=== PATIENT | female | born 1995 | race Caucasian/White ===

== ENCOUNTER 2025-04-15 09:56 | Inpatient (IN) | payer OTHER ==
[~2025-04-15] VITALS: Ht 170.2 cm; Wt 82.0 kg
--- NOTE | 2025-04-15 10:15 | ED.PDOC ---
HPI Comments 29 y/o F, with no prior cardiac medical history, presents to the ED for CC of abdominal pain. Patient states, she has been experiencing epigastric abdominal pain with associated symptoms of N/V/D x1day. Patient relays, pain to be sharp, and constant in nature. Patient reports 10/10 epigastric pain. Patient reports her LMP, to be in late February; patient unable to recall exact date. Patient denies sick contacts, recent travel, melena, hematemesis, fatigue, or weakness. No other symptoms or modifying factors present at this time. Chief Complaint: Chest Pain Time Seen by MD: 10:15 Reviewed Notes: Nurses Notes, Medications, Allergies Allergies: Coded Allergies: Doxycycline (Verified Allergy, Unknown, 04/15/25) FD&C Blue #2 (Indigotine) (Verified Allergy, Unknown, 04/15/25) Metronidazole (Verified Allergy, Unknown, 04/15/25) Oseltamivir (Verified Allergy, Unknown, 04/15/25) Penicillins (Verified Allergy, Unknown, 04/15/25) Sulfa Antibiotics (Verified Allergy, Unknown, 04/15/25) Information Source: Patient Mode of Arrival: Wheelchair Severity: Moderate Timing: Days Duration: Since onset Prehospital treatment: None Onset: At Rest Cardiac Risk Factors: None PE Risk Factors: None History of: None Modifying Factors: Nothing Associated Signs and Symptoms: Abdominal Pain, N/V Past Medical History PAST MEDICAL HISTORY: Denies Surgical History: Denies all surgeries 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 Family History Family History: Unknown Social History Smoker: Non-Smoker Alcohol: Denies ETOH Use Drugs: Denies Drug Use Lives In: Home Constitutional: denies: chills, diaphoresis, fatigue, fever, malaise, sweats, weakness, others EENTM: denies: blurred vision, double vision, ear bleeding, ear discharge, ear drainage, ear pain, ear ringing, eye pain, eye redness, hearing loss, mouth pain, mouth swelling, nasal discharge, nose bleeding, nose congestion, nose pain, photophobia, tearing, throat pain, throat swelling, voice changes, others Respiratory: denies: cough, hemoptysis, orthopnea, SOB at rest, shortness of breath, SOB with excertion, stridor, wheezing, others Cardiovascular: denies: chest pain, dizzy spells, diaphoresis, Dyspnea on exertion, edema, irregular heart beat, left arm pain, lightheadedness, palpitations, PND, syncope, others Gastrointestinal: reports: abdominal pain, diarrhea, nausea, vomiting; denies: abdomen distended, blood streaked bowels, constipated, dysphagia, difficulty swallowing, hematemesis, melena, poor appetite, poor fluid intake, rectal bleeding, rectal pain, others Genitourinary: denies: abnormal vagina bleeding, burning, dyspareunia, dysuria, flank pain, frequency, hematuria, incontinence, pain, , vagina discharge, urgency, others Neurological: denies: dizziness, fainting, headache, left sided numbness, left sided weakness, numbness, paresthesia, pre-existing deficit, right sided numbness, right sided weakness, seizure, speech problems, tingling, tremors, weakness, others Musculoskeletal: denies: back pain, gout, joint pain, joint swelling, muscle pain, muscle stiffness, neck pain, others Integumetry: denies: bruises, change in color, change in hair/nails, dryness, laceration, lesions, lumps, rash, wounds, others Allergic/Immunocompromised: denies: Difficulty Healing, Frequent Infections, Hives, Itching, others Hematologic/Lymphatic: denies: anemia, blood clots, easy bleeding, easy bruising, swollen glands, others Endocrine: denies: excessive hunger, excessive sweating, excessive thirst, excessive urination, flushing, intolerance to cold, intolerance to heat, unexplained weight gain, unexplained weight loss, others Psychiatric: denies: anxiety, bipolar disorder, depression, hopeless, panic disorder, schizophrenia, sleepless, suicidal, others All Other Systems: Reviewed and Negative Physical Exam General Appearance: No Apparent Distress, Normal HEENT: Normal ENT Inspection, Pharynx Normal, TMs Normal Neck: Full Range of Motion, Non-Tender, Normal, Normal Inspection Respiratory: Chest Non-Tender, Lungs Clear, No Accessory Muscle Use, No Respiratory Distress, Normal Breath Sounds Cardiovascular: No Edema, No JVD, No Murmur, No Gallop, Normal Peripheral Pulses, Regular Rate/Rhythm Breast Exam: Deferred Gastrointestinal: Epigastric (tenderness), No Organomegaly, No Pulsatile Mass, Normal Bowel Sounds Genitalia: Deferred Pelvic: Deferred Rectal: Deferred Extremities: No calf tenderness, Normal capillary refill, Normal inspection, Normal range of motion, Non-tender, No pedal edema Musculoskeletal : Apperance: Normal Neurologic: Alert, cable lacer II-XII nml as Tested, No Motor Deficits, Normal Affect, Normal Mood, No Sensory Deficits Cerebellar Function: Normal Reflexes: Normal Skin: Dry, Normal Color, Warm Lymphatic: No Adenopathy Was a procedure done? Was a procedure done?: No CP Differential Dx Differential Diagnosis: Anxiety / Panic Attack Differential Diagnosis: HTN Essential, HTN Accelerated Differential Diagnosis: Chest Wall Pain, Costochondritis, Esophageal reflux/spasm, Gastritis, Other (kidney stone, pancreatitis, cholelithiasis, related conditions) X-Ray, Labs, Meds, VS Vital Signs Date Time Temp Pulse Resp B/P (MAP) Pulse Ox O2 Delivery O2 Flow Rate FiO2 04/15/25 15:05 97.7 65 16 130/71 (90) 100 97.7 04/15/25 13:40 65 15 118/74 04/15/25 12:56 65 16 122/73 04/15/25 12:56 97.0 65 15 122/73 (89) 100 97.0 04/15/25 10:24 98.1 80 19 125/71 (89) 98 98.1 04/15/25 10:22 Room Air* 0 21 04/15/25 10:00 55 04/15/25 09:56 98.1 94 24 137/68 (91) 99 98.1 Lab Test 04/15/25 10:40 04/15/25 10:04 Range/Units White Blood Count 13.6 H 4.4-10.8 10^3/uL Red Blood Count 4.82 4.0-5.20 10^6/uL Hemoglobin 13.4 12.2-16.2 g/dL Hematocrit 40.4 36.0-46.0 % Mean Corpuscular Volume 83.8 80.0-100.0 fL Mean Corpuscular Hemoglobin 27.8 L 28.0-32.0 pg Mean Corpuscular Hemoglobin Concent 33.1 32.0-36.0 g/dL Red Cell Distribution Width 13.9 11.8-14.3 % Platelet Count 223 140-450 10^3/uL Mean Platelet Volume 9.7 6.9-10.8 fL Neutrophils (%) (Auto) 77.1 37.0-80.0 % Lymphocytes (%) (Auto) 14.4 10.0-50.0 % Monocytes (%) (Auto) 7.1 0.0-12.0 % Eosinophils (%) (Auto) 1.1 0.0-7.0 % Basophils (%) (Auto) 0.3 0.0-2.0 % Neutrophils # (Auto) 10.5 H 1.6-8.6 10 ^3/uL Lymphocytes # (Auto) 2.0 0.4-5.4 10 ^3/uL Monocytes # (Auto) 1.0 0-1.3 10 ^3/uL Eosinophils # (Auto) 0.2 0-0.8 10 ^3/uL Basophils # (Auto) 0 0-0.2 10 ^3/uL Nucleated Red Blood Cells 0.1 % Sodium Level 139 136-145 mmol/L Potassium Level 3.5 3.5-5.1 mmol/L Chloride Level 108 H 98-107 mmol/L Carbon Dioxide Level 20 20-31 mmol/L Anion Gap 11 5-15 Blood Urea Nitrogen 10 9-23 mg/dL Creatinine 0.67 0.550-1.02 mg/dL Glomerular Filtration Rate Calc 120 >90 mL/min BUN/Creatinine Ratio 14.9 10.0-20.0 Serum Glucose 150 H 74-106 mg/dL Calcium Level 9.4 8.7-10.4 mg/dL Total Bilirubin 0.8 0.2-1.0 mg/dL Aspartate Amino Transferase (AST) 37 13-40 U/L Alanine Aminotransferase (ALT) 13 7-40 U/L Alkaline Phosphatase 78 46-116 U/L Total Protein 7.6 5.7-8.2 g/dL Albumin 4.8 3.2-4.8 g/dL Lipase 36 12-53 U/L Urine Color Yellow Yellow Urine Clarity Turbid H Clear Urine pH 6.0 5.0-9.0 Urine Specific [place] 1.035 1.001-1.035 Urine Protein 1+ H Negative Urine Ketones Trace Negative Urine Blood Negative Negative /uL Urine Nitrite Negative Negative Urine Bilirubin Negative Negative Urine Urobilinogen 2 H Negative mg/dL Urine Leukocyte Esterase 1+ Negative /uL Urine RBC 3 0 - 4 /hpf Urine Microscopic WBC 18 H 0-5 /HPF Urine Squamous Epithelial Cells Many <5 /hpf Urine Bacteria Many H None Seen /hpf Urine Mucus Few None Seen Urine Glucose Normal Normal mg/dL Current Medications Medications (Trade) Dose Ordered Sig/Shashi Route Start Time Stop Time Status Last Admin Al Hydrox/Mg Hydrox/Simethicone (Maalox Plus) 15 ml ONCE ONCE PO 04/15/25 10:30 04/15/25 10:31 DC 04/15/25 10:34 Sodium Chloride 1,000 ml @ 1,000 mls/hr Q1H ONCE IV 04/15/25 11:45 04/15/25 12:44 DC 04/15/25 12:51 Ondansetron HCl (Zofran) 4 mg ONCE ONCE IV 04/15/25 11:45 04/15/25 11:46 DC 04/15/25 12:51 Morphine Sulfate 2 mg ONCE ONCE IV 04/15/25 12:45 04/15/25 12:46 DC 04/15/25 12:56 [place] [id number] Ph: [phone] DIAGNOSTIC IMAGING Diagnostic Imaging Report : [id number] Signed PATIENT: VIET FAM ACCT: [id number] UNIT: [id number] : 1995 LOC: ER ROOM / BED: / AGE / SEX: 29 / F ADM STATUS: REG ER SERVICE 1026 ORDERING PHYSICIAN: ELVIN ZABALA MD PROCEDURE(s): GBUS - GALLBLADDER REASON: epigastric pain ORDER NUMBER(s): [id number], ACCESSION NUMBER(s): [id number] EXAM: US GALLBLADDER HISTORY: epigastric pain COMPARISON: None TECHNIQUE: Multiple longitudinal and transverse sonographic images of the abdomen were obtained. Doppler was applied as indicated. FINDINGS: [PANCREAS]: The visualized portions of the pancreas are unremarkable. [AORTA]: Normal [LIVER]: 14.3 cm. normal echogenicity and echotexture. There is no focal hepatic mass lesion detected. [GALLBLADDER]: Gallbladder wall measures 0.1 cm. There is no gallbladder sludge or shadowing gallstone. There is no sonographic Mcallister sign. Gallbladder appears partially contracted. [BILIARY TREE]: Common bile duct measures 0.4 cm in diameter. no intrahepatic biliary ductal dilatation. [ASCITES]: No free fluid is demonstrated. [VESSELS]: The main portal vein is patent on color Doppler evaluation. The inferior vena cava is patent on color Doppler evaluation. [RIGHT KIDNEY]: 10.3 cm. normal cortical echogenicity and normal contour. No hydronephrosis. IMPRESSION: 1. No acute sonographic abnormality of the abdomen. ATED BY: MALINDA FLOOD MD DICTATED DATE/TIME: 04/15/25 141 SIGNED BY: MALINDA FLOOD MD SIGNED DATE/TIME: 04/15/25 1415 CC: Time of 1ST Reevaluation: 10:45 Reevaluation 1ST: Unchanged Time of 2ND Reevaluation: 15:21 Reevaluation 2ND: Improved Patient Education/Counseling: Diagnosis, Treatment, Prognosis, Need For Follow Up Family Education/Counseling: Diagnosis, Treatment, Prognosis, Need For Follow Up, No Family Present Additional Information The following tests were ordered, and results were reviewed by me: LABS, EKG X3, GALLBLADDER US I reviewed and agreed with the following test results read by other providers: GALLBLADDER US I discussed treatment and results with medical personnel and: patient Comprehensive systems review obtained and negative except for what is stated in the HPI. pt is improved, but still has pain. her pain is epigastric, but the US is unremarkable. she is not , does does have an uti. she will be admitted for pain control and further evaluation Departure 1 Departure Time of Disposition: 15:23 Impression: Primary Impression: Intractable epigastric abdominal pain Additional Impression: UTI (urinary tract infection) Disposition: ADMITTED INPATIENT Admit to: Med Surg Condition: Stable Discharged With: Self, Relative (Mother) Critical Care Note Critical Care Time?: Yes (55 min-critical care time only) Critical care comment: due to concerns for patient's condition deteriorating, the care required my highest level of attention and readiness to intervene. i assessed the patient's condition, ordered the proper tests and treatments, reassessed for response and reviewed the results. i communicated with medical personnel and formulated a plan of care. total critical care time does not include any procedures Stability Stability form required: No Heart Score Heart Score: Heart Score Response (Comments) Value History N/A 0 EKG N/A 0 Age N/A 0 Risk Factors N/A 0 Troponin N/A 0 Total 0 I personally scribed for ELVIN ZABALA MD ([email or web address]) on 04/15/25 at 10:15. Electronically submitted by Tracey Blankenship ([email or web address]). I personally scribed for ELVIN ZABALA MD ([email or web address]) on 04/15/25 at 10:18. Electronically submitted by Tracey Blankenship ([email or web address]). I personally scribed for ELVIN ZABALA MD ([facility]) on 04/15/25 at 10:30. Electronically submitted by Tracey Blankenship ([email or web address]). I personally scribed for ELVIN ZABALA MD ([facility]) on 04/15/25 at 11:22. Electronically submitted by Tracey Blankenship ([email or web address]). I personally scribed for ELVIN ZABALA MD ([email or web address]) on 04/15/25 at 14:23. Electronically submitted by Tracey Blankenship ([email or web address]). ELVIN ZABALA MD April 15, 2025 10:15
[2025-04-15] MEDS: MAALOX PLUS or MAALOX 30 ML PO ONE (10:34)
[2025-04-15 10:50] LABS: Basophils # (auto) 0 10 ^3/uL (0-0.2); Basophils % (auto) 0.3 % (0.0-2.0); Eosinophils # (auto) 0.2 10 ^3/uL (0-0.8); Eosinophils % (auto) 1.1 % (0.0-7.0); Hematocrit 40.4 % (36.0-46.0); Hemoglobin 13.4 g/dL (12.2-16.2); Lymphocytes % (auto) 14.4 % (10.0-50.0); Mean Corpuscular Hemoglobin 27.8 pg (28.0-32.0); Mean Corpuscular Hgb Conc. 33.1 g/dL (32.0-36.0); Mean Corpuscular Volume 83.8 fL (80.0-100.0); Monocytes % (auto) 7.1 % (0.0-12.0); Neutrophils # (auto) 10.5 10 ^3/uL (1.6-8.6); Neutrophils % (auto) 77.1 % (37.0-80.0); Nucleated Red Blood Cells % 0.1 %; Platelet Count (auto) 223 10^3/uL (140-450); Red Blood Cells 4.82 10^6/uL (4.0-5.20); Red Cell Distribution Width 13.9 % (11.8-14.3); White Blood Cell 13.6 10^3/uL (4.4-10.8)
[2025-04-15 11:11] LABS: Alanine Aminotransferase 13 U/L (7-40); Albumin 4.8 g/dL (3.2-4.8); Alkaline Phosphatase 78 U/L (46-116); Anion Gap 11 (5-15); Aspartate Aminotransferase 37 U/L (13-40); BUN/Creatinine Ratio 14.9 (10.0-20.0); Bilirubin, Total 0.8 mg/dL (0.2-1.0); Blood Urea Nitrogen 10 mg/dL (9-23); Calcium 9.4 mg/dL (8.7-10.4); Carbon Dioxide 20 mmol/L (20-31); Lipase 36 U/L (12-53); Potassium 3.5 mmol/L (3.5-5.1); Sodium 139 mmol/L (136-145); Total Protein 7.6 g/dL (5.7-8.2)
[2025-04-15 11:20] LABS: Chloride 108 mmol/L (98-107); Glucose 150 mg/dL (74-106)
[2025-04-15] MEDS: SODIUM CHLORIDE 0.9% 1,000 ML IV ONE (12:51)
[2025-04-15] MEDS: ONDANSETRON HCL 4 MG/2 ML VIAL IV ONE (12:51)
[2025-04-15] MEDS: MORPHINE SULFATE INJ 2 MG/ml SYRG IV ONE (12:56)
[2025-04-15] MEDS: fentaNYL CITRATE 100 MCG/2 ML VL IV ONE (13:00)
[2025-04-15 13:58] LABS: Urine Bacteria MANY /hpf (None Seen); Urine Blood Negative /uL (Negative); Urine Clarity Turbid (Clear); Urine Color Yellow (Yellow); Urine Mucus FEW (None Seen); Urine Protein, UAD 1+ (Negative); Urine Specific Gravity 1.035 (1.001-1.035); Urine Squamous Epithelial Cell MANY /hpf (<5); Urine Urobilinogen 2 mg/dL (Negative); Urine WBC 18 /HPF (0-5)
--- NOTE | 2025-04-15 14:17 | DVH ---
EXAM: US GALLBLADDER HISTORY: epigastric pain COMPARISON: None TECHNIQUE: Multiple longitudinal and transverse sonographic images of the abdomen were obtained. Dopp ler was applied as indicated. FINDINGS: [PANCREAS]: The visualized portions of the pancreas are unremarkable. [AORTA]: Normal [LIVER]: 14.3 cm. normal echogenicity and echotexture. There is no focal hepatic mass lesion detected . [GALLBLADDER]: Gallbladder wall measures 0.1 cm. There is no gallbladder sludge or shadowing gallston e. There is no sonographic Mcallister sign. Gallbladder appears partially contracted. [BILIARY TREE]: Common bile duct measures 0.4 cm in diameter. no intrahepatic biliary ductal dilatati on. [ASCITES]: No free fluid is demonstrated. [VESSELS]: The main portal vein is patent on color Doppler evaluation. The inferior vena cava is corbett nt on color Doppler evaluation. [RIGHT KIDNEY]: 10.3 cm. normal cortical echogenicity and normal contour. No hydronephrosis. IMPRESSION: 1. No acute sonographic abnormality of the abdomen.
[2025-04-15] MEDS ORDERED: cefTRIAXone 1GM/50ML D5W 50 ML IV ONE (15:30)
[2025-04-15] MEDS ORDERED: DOCUSATE SOD 100 MG CAP PO PRN (15:45)
[2025-04-15] MEDS ORDERED: HYDROcodone-ACET 5/325MG TAB PO PRN (15:45)
[2025-04-15] MEDS ORDERED: ACETAMINOPHEN 325 MG TAB PO PRN (15:45)
--- NOTE | 2025-04-15 16:27 | DVHHP2 ---
History of Present Illness Reason for Visit: Acute abdominal pain History of Present Illness The patient is a 29-year-old female who denies past medical history presented to [facility] ED with complaint of acute epigastric abdominal pain. Patient reports symptoms progressively get worse with diarrhea, nausea, vomi ting, rating pain 10/10 numeric scale, getting worse that prompted this visit. Patient reports LMP to be March 24, 2025, denies . Patient was seen and evaluated in the ED, laboratory data shows WBC 13.6, platelets 223, sodium 139, potassium 3.5, BUN 10, creatinine 0.67, glucose 150, lipase 36, blood pressure 130/71, heart rate 65, temperature 97.7 F, O2 saturation 99% on room air. Urinalysis positive for urinary tract infection. Abdomen/pelvis CT showed no definite acute abdominal or pelvic findings. Patient was started on IV antibiotic regimen levofloxacin, please see medication orders section in the computer. On my assessment, mother at bedside, patient denied chest pain, no headache, no dizziness, no diaphoresis, no shortness of breath, no diarrhea, nausea, or vomiting at this moment, no fever, no chills. Patient was admitted for further evaluation and medical management. Past Medical History Denies past medical history Past Surgical History Denies all surgeries Family History Reviewed, noncontributory to the management of this case. Past Social History The patient lives at home, denies smoking, alcohol or illicit drugs abuse. Review of Systems Constitutional: No: Fever, Chills, Sweats, Weakness, Malaise, Other Eyes: No: Pain, Vision change, Conjunctivae inflammation, Eyelid inflammation, Other, Redness ENT: No: Ear pain, Ear discharge, Nose pain, Nose discharge, Nose congestion, Mouth pain, Mouth swelling, Throat pain, Throat swelling, Other Respiratory: No: Cough, Dry, Shortness of breath, SOB with excertion, Wheezing, Hemoptysis, Pleuritic Pain, Sputum, Wheezing, Other Cardiovascular: No: Chest Pain, Palpitations, Orthopnea, Paroxysmal Noc. Dyspnea, Edema, Lt Headedness, Other Gastrointestinal: Nausea, Vomiting, Abdominal Pain, Diarrhea; No: Constipation, Melena, Hematochezia, Other Genitourinary: No Dysuria, No Frequency, No Incontinence, No Hematuria, No Retention, No Other Musculoskeletal: No: other, neck pain, shoulder pain, arm pain, back pain, hand pain, leg pain, foot pain Skin: No: Rash, Lesions, Jaundice, Bruising, Other Neurological: No: Weakness, Numbness, Incoordination, Change in speech, Confusion, Seizures, Other Allergies: Coded Allergies: COVID-19 (Adenovirus) Vaccine (Verified Allergy, Mild, 04/15/25) Nitrofurantoin (Verified Allergy, Mild, 04/15/25) Doxycycline (Verified Allergy, Unknown, 04/15/25) FD&C Blue #2 (Indigotine) (Verified Allergy, Unknown, 04/15/25) Metronidazole (Verified Allergy, Unknown, 04/15/25) Oseltamivir (Verified Allergy, Unknown, 04/15/25) Penicillins (Verified Allergy, Unknown, 04/15/25) Sulfa Antibiotics (Verified Allergy, Unknown, 04/15/25) Medications Current Medications Medications Dose Ordered Sig/Shashi Route Start Time Stop Time Status Last Admin Dose Admin Levofloxacin/ Dextrose 100 ml @ 100 mls/hr DAILY IV 04/16/25 10:00 Sodium Chloride 1,000 ml @ 60 mls/hr [id number] IV 04/15/25 15:45 Acetaminophen/ Hydrocodone Bitart 1 tab Q4HP PRN PO 04/15/25 15:45 Ondansetron HCl 4 mg Q4HP PRN IV 04/15/25 15:45 Docusate Sodium 100 mg BIDPRN PRN PO 04/15/25 15:45 Acetaminophen 650 mg Q6HP PRN PO 04/15/25 15:45 Exam Vital Signs Vital Signs Date Time Temp Pulse Resp B/P (MAP) Pulse Ox O2 Delivery O2 Flow Rate FiO2 04/15/25 15:05 97.7 65 16 130/71 (90) 100 97.7 04/15/25 10:22 Room Air* 0 21 General Appearance: Alert, Oriented X3, Cooperative, No acute distress HEENT: Atraumatic, PERRLA, EOMI, Mucous membr. moist/pink Respiratory: Clear to auscultation, Normal air movement Cardiovascular: Regular rate, Normal S1, Normal S2, No murmurs Abdominal: Normal bowel sounds, Soft, No hepatospenomegaly, No masses, Other (Reports tenderness) Extremities: No clubbing, No cyanosis, No edema, Normal pulses, No tenderness/swelling Skin: No rashes, No breakdown, No significant lesion Neuro: Normal speech, Normal tone, Sensation intact, Cranial nerves 3-12 NL, Reflexes 2+, Other (Generalized weakness) Psych/Mental Status: Mental status NL, Mood NL Labs/Xrays Labs Test 04/15/25 10:40 04/15/25 10:04 Range/Units White Blood Count 13.6 H 4.4-10.8 10^3/uL Red Blood Count 4.82 4.0-5.20 10^6/uL Hemoglobin 13.4 12.2-16.2 g/dL Hematocrit 40.4 36.0-46.0 % Mean Corpuscular Volume 83.8 80.0-100.0 fL Mean Corpuscular Hemoglobin 27.8 L 28.0-32.0 pg Mean Corpuscular Hemoglobin Concent 33.1 32.0-36.0 g/dL Red Cell Distribution Width 13.9 11.8-14.3 % Platelet Count 223 140-450 10^3/uL Mean Platelet Volume 9.7 6.9-10.8 fL Neutrophils (%) (Auto) 77.1 37.0-80.0 % Lymphocytes (%) (Auto) 14.4 10.0-50.0 % Monocytes (%) (Auto) 7.1 0.0-12.0 % Eosinophils (%) (Auto) 1.1 0.0-7.0 % Basophils (%) (Auto) 0.3 0.0-2.0 % Neutrophils # (Auto) 10.5 H 1.6-8.6 10 ^3/uL Lymphocytes # (Auto) 2.0 0.4-5.4 10 ^3/uL Monocytes # (Auto) 1.0 0-1.3 10 ^3/uL Eosinophils # (Auto) 0.2 0-0.8 10 ^3/uL Basophils # (Auto) 0 0-0.2 10 ^3/uL Nucleated Red Blood Cells 0.1 % Sodium Level 139 136-145 mmol/L Potassium Level 3.5 3.5-5.1 mmol/L Chloride Level 108 H 98-107 mmol/L Carbon Dioxide Level 20 20-31 mmol/L Anion Gap 11 5-15 Blood Urea Nitrogen 10 9-23 mg/dL Creatinine 0.67 0.550-1.02 mg/dL Glomerular Filtration Rate Calc 120 >90 mL/min BUN/Creatinine Ratio 14.9 10.0-20.0 Serum Glucose 150 H 74-106 mg/dL Calcium Level 9.4 8.7-10.4 mg/dL Total Bilirubin 0.8 0.2-1.0 mg/dL Aspartate Amino Transferase (AST) 37 13-40 U/L Alanine Aminotransferase (ALT) 13 7-40 U/L Alkaline Phosphatase 78 46-116 U/L Total Protein 7.6 5.7-8.2 g/dL Albumin 4.8 3.2-4.8 g/dL Lipase 36 12-53 U/L Urine Color Yellow Yellow Urine Clarity Turbid H Clear Urine pH 6.0 5.0-9.0 Urine Specific [place] 1.035 1.001-1.035 Urine Protein 1+ H Negative Urine Ketones Trace Negative Urine Blood Negative Negative /uL Urine Nitrite Negative Negative Urine Bilirubin Negative Negative Urine Urobilinogen 2 H Negative mg/dL Urine Leukocyte Esterase 1+ Negative /uL Urine RBC 3 0 - 4 /hpf Urine Microscopic WBC 18 H 0-5 /HPF Urine Squamous Epithelial Cells Many <5 /hpf Urine Bacteria Many H None Seen /hpf Urine Mucus Few None Seen Urine Glucose Normal Normal mg/dL Urine Test Negative Negative PATIENT: VIET FAM ACCT: [id number] UNIT: [id number] : 1995 LOC: ER ROOM / BED: / AGE / SEX: 29 / F ADM STATUS: REG ER SERVICE 1500 ORDERING PHYSICIAN: ELVIN ZABALA MD PROCEDURE(s): ABPL - CT AB PEL WO CON-NO ORAL OR IV REASON: r/o kidney stones ORDER NUMBER(s): [id number], ACCESSION NUMBER(s): [id number] Exam: CT CT AB PEL WO CON-NO ORAL OR IV History: r/o kidney stones Comparison Study: None Technique: Multidetector spiral CT of the abdomen and pelvis was performed from lung bases to pubic symphysis. Imaging was performed without IV contrast. Axial, coronal and sagittal multiplanar reformats were obtained from the axial data set by the technologist. Radiation dose : Abdomen/Pelvis: CTDIvol 9 mGy, DLP 489 mGy*cm. Findings: Evaluation of solid organs is limited due to lack of intravenous contrast use. Lung Bases: No acute or significant lung base finding. Normal heart size. No pleural or pericardial effusion. Liver: The liver is normal in size. No focal lesions. Gallbladder and biliary Tree: Unremarkable Spleen: Unremarkable Pancreas: The pancreas is grossly normal in appearance. Adrenal Glands: Unremarkable Kidneys: Kidneys are grossly normal without calculi or hydronephrosis. There is a calcification along the course of the distal left ureter measuring up to 4 mm. Bladder: Grossly unremarkable for degree of distention. Bowel: The stomach is grossly normal in appearance. Small bowel and colon are normal in caliber and distribution. Normal appendix is visualized in the right lower quadrant without findings of appendicitis. Ascites: Absent Lymphadenopathy: No mesenteric, retroperitoneal or periportal lymphadenopathy. Abdominal wall and Mesentery: Unremarkable. Vasculature: The visualized abdominal aorta is normal in size and caliber. Evaluation of abdominal and pelvic vessels is limited due to lack of intravenous contrast. Pelvic Organs: Unremarkable Musculoskeletal: No aggressive focal bony lesions, acute fractures or dislocation. IMPRESSION: 1. No definite acute abdominal or pelvic findings. No significant hydronephrosis or nephrolithiasis. Calcification along the course of the distal left ureter is thought to be vascular. If this correlates with symptoms, this can be further evaluated with CT urogram. ORDERING PHYSICIAN: ELVIN ZABALA MD PROCEDURE(s): GBUS - GALLBLADDER REASON: epigastric pain ORDER NUMBER(s): [id number], ACCESSION NUMBER(s): [id number] EXAM: US GALLBLADDER HISTORY: epigastric pain COMPARISON: None TECHNIQUE: Multiple longitudinal and transverse sonographic images of the abdomen were obtained. Doppler was applied as indicated. FINDINGS: [PANCREAS]: The visualized portions of the pancreas are unremarkable. [AORTA]: Normal [LIVER]: 14.3 cm. normal echogenicity and echotexture. There is no focal hepatic mass lesion detected. [GALLBLADDER]: Gallbladder wall measures 0.1 cm. There is no gallbladder sludge or shadowing gallstone. There is no sonographic Mcallister sign. Gallbladder appears partially contracted. [BILIARY TREE]: Common bile duct measures 0.4 cm in diameter. no intrahepatic biliary ductal dilatation. [ASCITES]: No free fluid is demonstrated. [VESSELS]: The main portal vein is patent on color Doppler evaluation. The inferior vena cava is patent on color Doppler evaluation. [RIGHT KIDNEY]: 10.3 cm. normal cortical echogenicity and normal contour. No hydronephrosis. IMPRESSION: 1. No acute sonographic abnormality of the abdomen. Assessment/Plan Assessment/Plan Intractable epigastric abdominal pain Hyperglycemia UTI (urinary tract infection) Generalized weakness Plan 1. Admit to med surge unit 2. Breathing treatment 3. Pain control management 4. IV antibiotic management 5. Management of fluids and electrolytes 6. Consultation for hospitalist 7. Diagnostic test abdomen/pelvis CT 8. DVT prophylaxis on SCDs 9. Repeat labs CBC, CMP in a.m. 10. Home medication reviewed and reconciled 11. Continue with current medical management 12. Treatment plan discussed with patient/mother and RN. Patient/mother verbalized understanding. Plan discussed with: Patient, Other (RN) My Orders Orders - KYLEE FRIAS DNP Procedure Category Date Status Time Levofloxacin 500mg PHA 04/16/25 In Process (Levaquin 500mg/ 100m 10:00 Urine Bacterial MARKUS 04/15/25 In Process Culture 15:42 Hemoglobin A1c LAB 04/15/25 In Process 15:42 Allergies KB 04/15/25 In Process 15:42 Code Status CODE 04/15/25 Transmitted 15:42 2 Gm Sodium Diet DIET 04/15/25 Transmitted Dinner Sodium Chloride 0.9% PHA 04/15/25 In Process 15:45 Oxygen Per Hour RT 04/15/25 Transmitted 15:42 Hydrocodone-Acet PHA 04/15/25 In Process 5/325mg Tab ([place] 15:45 Ondansetron Hcl PHA 04/15/25 In Process (Zofran) 15:45 Docusate Sodium PHA 04/15/25 In Process Capsule (Colace 15:45 Complete Blood Count LAB 04/16/25 Verified 04:00 Comprehensive LAB 04/16/25 Verified Metabolic Panel 04:00 Condition: Serious KB 04/15/25 In Process 15:42 Acetaminophen Tablet PHA 04/15/25 In Process (Tylenol Tablet) 15:45 Bedrest With Bathroom KB 04/15/25 In Process Privileg 15:42 Sequential KB 04/15/25 In Process Compression Device Admit ADMIT 04/15/25 Verified 16:25 Nitroglycerin PHA 04/15/25 Verified Sublingual (Ntrostat 16:30 Morphine Sulfate PHA 04/15/25 Verified Injection 16:30 Notify Of Changes KB 04/15/25 Verified From Base 16:25 Production Line Assembler For KB 04/15/25 Verified 24 Hours 16:25 Emergency Dysrhythmia KB 04/15/25 Verified Protocol 16:25 Oxygen By Nasal RT 04/15/25 Verified Cannula 16:25 Problem List: (1) Intractable epigastric abdominal pain (2) Hyperglycemia (3) UTI (urinary tract infection) (4) Generalized weakness Date of Service: April 15, 2025 Billing Provider: KYLEE FRIAS DNP Common Visit Codes: [id number] INP/OBS CARE (HIGH) KYLEE FRIAS DNP April 15, 2025 16:27
[2025-04-15] MEDS ORDERED: NITROGLYCERIN 0.4 MG SL TAB SL PRN (16:30)
[2025-04-15] MEDS: MORPHINE SULFATE INJ 2 MG/ml SYRG IV PRN (16:36)
[2025-04-15] MEDS: ONDANSETRON HCL 4 MG/2 ML VIAL IV PRN (16:37)
--- NOTE | 2025-04-15 16:38 | DVH ---
Exam: CT CT AB PEL WO CON-NO ORAL OR IV History: r/o kidney stones Comparison Study: None Technique: Multidetector spiral CT of the abdomen and pelvis was performed from lung bases to pubic symphysis. Imaging was performed without IV contrast. Axial, coronal and sagittal multiplanar reform ats were obtained from the axial data set by the technologist. Radiation dose : Abdomen/Pelvis: CTDIvol 9 mGy, DLP 489 mGy*cm. Findings: Evaluation of solid organs is limited due to lack of intravenous contrast use. Lung Bases: No acute or significant lung base finding. Normal heart size. No pleural or pericardial effusion. Liver: The liver is normal in size. No focal lesions. Gallbladder and biliary Tree: Unremarkable Spleen: Unremarkable Pancreas: The pancreas is grossly normal in appearance. Adrenal Glands: Unremarkable Kidneys: Kidneys are grossly normal without calculi or hydronephrosis. There is a calcification along the course of the distal left ureter measuring up to 4 mm. Bladder: Grossly unremarkable for degree of distention. Bowel: The stomach is grossly normal in appearance. Small bowel and colon are normal in caliber and d istribution. Normal appendix is visualized in the right lower quadrant without findings of appendicit is. Ascites: Absent Lymphadenopathy: No mesenteric, retroperitoneal or periportal lymphadenopathy. Abdominal wall and Mesentery: Unremarkable. Vasculature: The visualized abdominal aorta is normal in size and caliber. Evaluation of abdominal a nd pelvic vessels is limited due to lack of intravenous contrast. Pelvic Organs: Unremarkable Musculoskeletal: No aggressive focal bony lesions, acute fractures or dislocation. IMPRESSION: 1. No definite acute abdominal or pelvic findings. No significant hydronephrosis or nephrolithiasis. Calcification along the course of the distal left ureter is thought to be vascular. If this correlat es with symptoms, this can be further evaluated with CT urogram. Radiation optimization: All CT scans at this facility use at least one of these dose optimization roni hniques: Automated exposure control mA and/or kV adjustment per patient size (includes targeted exams where dose is matched to clinical indication) or iterative reconstruction. HS:Y
[2025-04-15 17:21] VITALS: BP 116/72; PULSE 80; RESP 16; TEMP 98; O2SAT 97
[2025-04-15] MEDS: levoFLOXacin 500MG 100 ML IV ONE (17:25)
[2025-04-15] MEDS: SODIUM CHLORIDE 0.9% 1,000 ML IV SCH (17:26)
[2025-04-15 17:45] VITALS: BP 146/85; PULSE 60; RESP 18; TEMP 98.6; O2SAT 98
[2025-04-15] MEDS: diphenhdrAMINE HCL 50 MG/1 ML VL IV PRN (18:14)
--- NOTE | 2025-04-15 19:03 | ECG ---
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
[2025-04-15] MEDS: POTASSIUM CHL 20 Meq TABLET PO ONE (20:00)
[2025-04-15] MEDS ORDERED: ALBU108A5 IN (20:28)
[2025-04-15] MEDS ORDERED: ALBU0.084 NEB (20:28)
[2025-04-15 21:00] VITALS: BP 121/64; PULSE 71; RESP 18; TEMP 98.3; O2SAT 95
[2025-04-16 05:00] VITALS: BP 116/73; PULSE 52; TEMP 97.1; O2SAT 98
[2025-04-16 06:48] LABS: Albumin 4.2 g/dL (3.2-4.8); Anion Gap 14 (5-15); BUN/Creatinine Ratio 14.1 (10.0-20.0); Bilirubin, Total 0.7 mg/dL (0.2-1.0); Blood Urea Nitrogen 9 mg/dL (9-23); Calcium 8.8 mg/dL (8.7-10.4); Glucose 82 mg/dL (74-106); Sodium 140 mmol/L (136-145); Total Protein 6.4 g/dL (5.7-8.2)
[2025-04-16 06:55] LABS: Alanine Aminotransferase 627 U/L (7-40); Alkaline Phosphatase 138 U/L (46-116); Aspartate Aminotransferase 707 U/L (13-40); Carbon Dioxide 17 mmol/L (20-31); Chloride 109 mmol/L (98-107)
[2025-04-16 08:21] LABS: Basophils # (auto) 0 10 ^3/uL (0-0.2); Basophils % (auto) 0.6 % (0.0-2.0); Eosinophils # (auto) 0.1 10 ^3/uL (0-0.8); Eosinophils % (auto) 2.4 % (0.0-7.0); Hematocrit 39.9 % (36.0-46.0); Hemoglobin 13.2 g/dL (12.2-16.2); Lymphocytes # (auto) 1.3 10 ^3/uL (0.4-5.4); Mean Corpuscular Hemoglobin 27.8 pg (28.0-32.0); Mean Corpuscular Volume 84.4 fL (80.0-100.0); Monocytes # (auto) 0.4 10 ^3/uL (0-1.3); Monocytes % (auto) 9.7 % (0.0-12.0); Neutrophils # (auto) 2.7 10 ^3/uL (1.6-8.6); Neutrophils % (auto) 59.3 % (37.0-80.0); Nucleated Red Blood Cells % 0.3 %; Platelet Count (auto) 180 10^3/uL (140-450); Red Blood Cells 4.73 10^6/uL (4.0-5.20); Red Cell Distribution Width 13.9 % (11.8-14.3); White Blood Cell 4.5 10^3/uL (4.4-10.8)
[2025-04-16 09:00] VITALS: BP 119/62; PULSE 56; RESP 17; TEMP 98.6; O2SAT 98
[2025-04-16] MEDS: levoFLOXacin 500MG 100 ML IV SCH (09:43)
[2025-04-16 13:18] VITALS: BP 127/81; PULSE 62; RESP 12; TEMP 98.9
[2025-04-16 13:21] LABS: Anion Gap 11 (5-15); BUN/Creatinine Ratio 12.7 (10.0-20.0); Blood Urea Nitrogen 10 mg/dL (9-23); Calcium 10.1 mg/dL (8.7-10.4); Carbon Dioxide 23 mmol/L (20-31); Glucose 86 mg/dL (74-106); Potassium 3.8 mmol/L (3.5-5.1); Sodium 142 mmol/L (136-145); Total Protein 7.9 g/dL (5.7-8.2)
[2025-04-16 13:22] LABS: Bilirubin, Total 0.8 mg/dL (0.2-1.0)
[2025-04-16 13:25] LABS: Alanine Aminotransferase 580 U/L (7-40); Alkaline Phosphatase 164 U/L (46-116); Aspartate Aminotransferase 442 U/L (13-40); Chloride 108 mmol/L (98-107)
--- NOTE | 2025-04-16 16:10 | DVHPN2 ---
Subjective Patient reporting having itchiness and some swelling from her IV antibiotic therapy earlier. Reviewed: Care Plan, H&P, Labs, Medications, Previous Orders Changes from previous H/P or p: No Changes General: Per HPI Eyes: No Pain, No Vision change, No Conjunctivae inflammation, No Eyelid inflammation, No Other, No Redness ENT: No Ear pain, No Ear discharge, No Nose pain, No Nose discharge, No Nose congestion, No Mouth pain, No Mouth swelling, No Throat pain, No Throat swelling, No Other Cardiovascular: No Chest Pain, No Palpitations, No Orthopnea, No Paroxysmal Noc. Dyspnea, No Edema, No Lt Headedness, No Other Respiratory: No Cough, No Dry, No Shortness of breath, No SOB with excertion, No Wheezing, No Hemoptysis, No Pleuritic Pain, No Sputum, No Other Gastrointestinal: Nausea, Vomiting, Abdominal Pain, Diarrhea; No Constipation, No Melena, No Hematochezia, No Other Genitourinary: No Dysuria, No Frequency, No Incontinence, No Hematuria, No Retention, No Other Musculoskeletal: No other, No neck pain, No shoulder pain, No arm pain, No back pain, No hand pain, No leg pain, No foot pain Skin: No Rash, No Lesions, No Jaundice, No Bruising, No Other Objective Vitals Vital Signs Date Time Temp Pulse Resp B/P (MAP) Pulse Ox O2 Delivery O2 Flow Rate FiO2 04/16/25 13:18 98.9 62 12 127/81 (96) 98.9 04/16/25 09:00 98 04/15/25 17:21 Room Air* 0 21 Intake/Output Intake and Output 04/16/25 07:00 Intake Total 250 ml Output Total 150 ml Balance 100 ml Intake Oral 250 ml Output Urine Total 150 ml General Appearance: Alert, Oriented X3, Cooperative, mild distress HEENT: Atraumatic, PERRLA Lungs: Clear to auscultation, Normal air movement Cardiovascular: Normal S1, Normal S2 Abdomen: Normal bowel sounds, Soft, No hepatospenomegaly, No masses Musculoskeletal: Normal sensory function, Normal motor function Extremities: No clubbing, No cyanosis, No edema, Normal pulses, No tenderness/swelling Neuro: Normal gait, Normal speech Skin: Cyanosis, Dry, Intact Psych/Mental Status: Mental status NL, Mood NL Medications Current Medications Medications Dose Ordered Sig/Shashi Route Start Time Stop Time Status Last Admin Dose Admin Levofloxacin/ Dextrose 100 ml @ 100 mls/hr DAILY IV 04/16/25 10:00 04/16/25 09:43 100 MLS/HR Sodium Chloride 1,000 ml @ 60 mls/hr [id number] IV 04/15/25 15:45 04/16/25 08:25 60 MLS/HR Acetaminophen/ Hydrocodone Bitart 1 tab Q4HP PRN PO 04/15/25 15:45 Ondansetron HCl 4 mg Q4HP PRN IV 04/15/25 15:45 04/15/25 16:37 4 MG Docusate Sodium 100 mg BIDPRN PRN PO 04/15/25 15:45 Acetaminophen 650 mg Q6HP PRN PO 04/15/25 15:45 Nitroglycerin 0.4 mg Q5MINP PRN SL 04/15/25 16:30 Morphine Sulfate 2 mg Q30M PRN IV 04/15/25 16:30 04/15/25 16:36 2 MG Diphenhydramine HCl 25 mg Q6HP PRN IV 04/15/25 18:00 04/15/25 18:14 25 MG Laboratory Results Laboratory Tests 04/16/25 08:01 04/16/25 12:53 Chemistry Test 04/16/25 04:35 04/16/25 12:53 Albumin 4.2 g/dL (3.2-4.8) 5.0 g/dL (3.2-4.8) H Calcium Level 8.8 mg/dL (8.7-10.4) 10.1 mg/dL (8.7-10.4) Total Protein 6.4 g/dL (5.7-8.2) 7.9 g/dL (5.7-8.2) LFT Test 04/16/25 04:35 04/16/25 12:53 Alanine Aminotransferase (ALT) 627 U/L (7-40) H 580 U/L (7-40) H Alkaline Phosphatase 138 U/L (46-116) H 164 U/L (46-116) H Aspartate Amino Transferase (AST) 707 U/L (13-40) H 442 U/L (13-40) H Total Bilirubin 0.7 mg/dL (0.2-1.0) 0.8 mg/dL (0.2-1.0) Urinalysis Test 04/15/25 10:04 Urine Color Yellow (Yellow) Urine Clarity Turbid (Clear) H Urine pH 6.0 (5.0-9.0) Urine Specific [place] 1.035 (1.001-1.035) Urine Protein 1+ (Negative) H Urine Ketones Trace (Negative) Urine Blood Negative /uL (Negative) Urine Nitrite Negative (Negative) Urine Bilirubin Negative (Negative) Urine Urobilinogen 2 mg/dL (Negative) H Urine Leukocyte Esterase 1+ /uL (Negative) Urine RBC 3 /hpf (0 - 4) Urine Microscopic WBC 18 /HPF (0-5) H Urine Squamous Epithelial Cells Many /hpf (<5) Urine Bacteria Many /hpf (None Seen) H Urine Mucus Few (None Seen) Urine Glucose Normal mg/dL (Normal) Urine Test Negative (Negative) Microbiology Microbiology Date/Time Source Procedure Growth Status 04/15/25 10:04 Voided Urine Urine Culture - Preliminary Resulted Assessment/Plan Assessment/Plan Impression: -complicated cystitis -allergic reaction to Levaquin with noted transaminitis -intractable nausea and vomiting -leukocytosis,? Sepsis Plan: -patient reports that her initial symptoms of abdominal pain with nausea and vomiting have all resolved. Patient also noted to no longer have any abdominal tenderness with palpation. Patient was treated with Levaquin, with noted reaction. Patient also had significant spike in liver function tests. Long discussion was made with the patient regarding her medical history. She reports that she did have her liver enzymes increase in the past when she was 17, which was attributed to possible reaction to something she ingested. Patient has multiple antibiotic allergies. -start Azactam IV -repeat CMP in a.m. -urine culture -reassess for discharge in a.m. Total time spent with patient discussing and formulating plan of care: 35 minutes. This medical document was created using an electronic medical record system with [employer] dictation system. Although this document has been carefully reviewed, there may still be some phonetic and typographical errors. These areas are purely typographical due to imperfections of the software programs, and do not reflect any compromise in the patient's medical care. Plan discussed with: Patient, Other (RN) My Orders Orders - BOBBY KING [employer]UM PLANT SUPERVISOR Procedure Category Date Status Time Urine Bacterial MARKUS 04/16/25 In Process Culture 11:24 Aztreonam 1gm Inj PHA 04/16/25 Transmitted (Azactam) 22:00 Comprehensive LAB 04/17/25 Verified Metabolic Panel 04:00 Date of Service: April 16, 2025 Billing Provider: BOBBY KING NP Common Visit Codes: [id number] INP/OBS CARE(HIGH) BOBBY KING NP April 16, 2025 16:10
[2025-04-16 17:40] VITALS: BP 127/84; PULSE 93; RESP 17; TEMP 97.4; O2SAT 94
[2025-04-16 20:00] VITALS: PULSE 71; RESP 17; O2SAT 99
[2025-04-16 21:00] VITALS: BP 127/78; PULSE 71; RESP 17; TEMP 97.8; O2SAT 99
[2025-04-16] MEDS: AZTREONAM 1GM INJ 1 GM in D5W 5% 50 ML IV SCH (21:48)
[2025-04-17 01:00] VITALS: BP 122/86; PULSE 60; RESP 18; TEMP 97.7; O2SAT 98
[2025-04-17 05:00] VITALS: BP 116/80; PULSE 91; RESP 18; TEMP 97.9; O2SAT 98
[2025-04-17 06:38] LABS: Albumin 3.9 g/dL (3.2-4.8); Alkaline Phosphatase 110 U/L (46-116); Anion Gap 10 (5-15); BUN/Creatinine Ratio 17.1 (10.0-20.0); Blood Urea Nitrogen 13 mg/dL (9-23); Carbon Dioxide 22 mmol/L (20-31); Glucose 103 mg/dL (74-106); Potassium 3.8 mmol/L (3.5-5.1); Sodium 141 mmol/L (136-145); Total Protein 6.3 g/dL (5.7-8.2)
[2025-04-17 06:39] LABS: Bilirubin, Total 0.4 mg/dL (0.2-1.0)
[2025-04-17 06:50] LABS: Alanine Aminotransferase 342 U/L (7-40); Aspartate Aminotransferase 136 U/L (13-40); Calcium 8.6 mg/dL (8.7-10.4); Chloride 109 mmol/L (98-107)
[2025-04-17 08:00] VITALS: PULSE 78; RESP 17; O2SAT 99
[2025-04-17 09:00] VITALS: BP 128/78; PULSE 64; RESP 18; TEMP 97.4; O2SAT 96
--- NOTE | 2025-04-17 11:14 | DVHDS2 ---
Discharge Summary Date of Admission April 15, 2025 at 16:25 Date of Discharge: April 17, 2025 Admitting Diagnosis Intractable nausea and vomiting Labs/Diagnostic Data: Laboratory Results Test 04/17/25 05:13 04/16/25 08:01 04/15/25 10:40 04/15/25 10:04 Sodium Level 141 mmol/L (136-145) Potassium Level 3.8 mmol/L (3.5-5.1) Chloride Level 109 mmol/L (98-107) Carbon Dioxide Level 22 mmol/L (20-31) Anion Gap 10 (5-15) Blood Urea Nitrogen 13 mg/dL (9-23) Creatinine 0.76 mg/dL (0.550-1.02) Glomerular Filtration Rate Calc 107 mL/min (>90) BUN/Creatinine Ratio 17.1 (10.0-20.0) Serum Glucose 103 mg/dL (74-106) Calcium Level 8.6 mg/dL (8.7-10.4) Total Bilirubin 0.4 mg/dL (0.2-1.0) Aspartate Amino Transferase (AST) 136 U/L (13-40) Alanine Aminotransferase (ALT) 342 U/L (7-40) Alkaline Phosphatase 110 U/L (46-116) Total Protein 6.3 g/dL (5.7-8.2) Albumin 3.9 g/dL (3.2-4.8) White Blood Count 4.5 10^3/uL (4.4-10.8) Red Blood Count 4.73 10^6/uL (4.0-5.20) Hemoglobin 13.2 g/dL (12.2-16.2) Hematocrit 39.9 % (36.0-46.0) Mean Corpuscular Volume 84.4 fL (80.0-100.0) Mean Corpuscular Hemoglobin 27.8 pg (28.0-32.0) Mean Corpuscular Hemoglobin Concent 33.0 g/dL (32.0-36.0) Red Cell Distribution Width 13.9 % (11.8-14.3) Platelet Count 180 10^3/uL (140-450) Mean Platelet Volume 9.9 fL (6.9-10.8) Neutrophils (%) (Auto) 59.3 % (37.0-80.0) Lymphocytes (%) (Auto) 28.0 % (10.0-50.0) Monocytes (%) (Auto) 9.7 % (0.0-12.0) Eosinophils (%) (Auto) 2.4 % (0.0-7.0) Basophils (%) (Auto) 0.6 % (0.0-2.0) Neutrophils # (Auto) 2.7 10 ^3/uL (1.6-8.6) Lymphocytes # (Auto) 1.3 10 ^3/uL (0.4-5.4) Monocytes # (Auto) 0.4 10 ^3/uL (0-1.3) Eosinophils # (Auto) 0.1 10 ^3/uL (0-0.8) Basophils # (Auto) 0 10 ^3/uL (0-0.2) Nucleated Red Blood Cells 0.3 % Hemoglobin A1c 5.2 % A1C (<5.7) Lipase 36 U/L (12-53) Urine Color Yellow (Yellow) Urine Clarity Turbid (Clear) Urine pH 6.0 (5.0-9.0) Urine Specific [place] 1.035 (1.001-1.035) Urine Protein 1+ (Negative) Urine Ketones Trace (Negative) Urine Blood Negative /uL (Negative) Urine Nitrite Negative (Negative) Urine Bilirubin Negative (Negative) Urine Urobilinogen 2 mg/dL (Negative) Urine Leukocyte Esterase 1+ /uL (Negative) Urine RBC 3 /hpf (0 - 4) Urine Microscopic WBC 18 /HPF (0-5) Urine Squamous Epithelial Cells Many /hpf (<5) Urine Bacteria Many /hpf (None Seen) Urine Mucus Few (None Seen) Urine Glucose Normal mg/dL (Normal) Urine Test Negative (Negative) Other Laboratory Tests 04/17/25 05:13 04/16/25 08:01 Brief Hx & Hospital Course: History of Present Illness The patient is a 29-year-old female who denies past medical history presented to [facility] ED with complaint of acute epigastric abdominal pain. Patient reports symptoms progressively get worse with diarrhea, nausea, vomiting, rating pain 10/10 numeric scale, getting worse that prompted this visit. Patient reports LMP to be March 24, 2025, denies . Patient was seen and evaluated in the ED, laboratory data shows WBC 13.6, platelets 223, sodium 139, potassium 3.5, BUN 10, creatinine 0.67, glucose 150, lipase 36, blood pressure 130/71, heart rate 65, temperature 97.7 F, O2 saturation 99% on room air. Urinalysis positive for urinary tract infection. Abdomen/pelvis CT showed no definite acute abdominal or pelvic findings. Patient was started on IV antibiotic regimen levofloxacin, please see medication orders section in the computer. On my assessment, mother at bedside, patient denied chest pain, no headache, no dizziness, no diaphoresis, no shortness of breath, no diarrhea, nausea, or vomiting at this moment, no fever, no chills. Patient was admitted for further evaluation and medical management. Course of hospitalization: Further discussion with the patient reveals that she attributed to her epigastric pain and nausea and vomiting secondary to an [id number] colonic Cleanse that she took at home. Patient was found to have UTI, contaminated urine culture. Patient was started on Levaquin for which the patient had a reaction to with respect to having hives, itching, as well as noted significant elevation in liver function tests. Long discussion with the patient reveals that she has had previous history of increase liver enzymes due to an unknown origin. The patient does report having significant allergies to multiple antibiotics, with most symptoms including nausea and vomiting, abdominal pain. Patient was started on Azactam, with patient having no allergies after receiving two doses. Given the patient's white blood cell count improved, and she is asymptomatic, patient will be discharged after receiving her dose at 2:00 p.m. today. Patient was instructed to follow up with her PCP in 1-2 weeks. All questions answered. Physical examination General: Alert and Oriented x3. No acute distress. Well-nourished. Eyes: EOMI. Anicteric. HENT: Moist mucous membranes. Lungs: Clear to auscultation bilaterally. No accessory muscle use. Cardiovascular: Regular rate and rhythm. No murmur. No JVD. Abdomen: Soft, non-tender and non-distended. No palpable masses. Extremities: No edema. Non-tender. Skin: No rashes or lesions. Warm. Neurologic: No focal neurological deficits. CN II-XII grossly intact, but not individually tested. Psychiatric: Cooperative. Appropriate mood and affect. Total time spent with patient discussing and formulating plan of care: 35 minutes. This medical document was created using an electronic medical record system with Dragon computerized dictation system. Although this document has been carefully reviewed, there may still be some phonetic and typographical errors. These areas are purely typographical due to imperfections of the software programs, and do not reflect any compromise in the patient's medical care. Condition at Discharge: Fair Final Diagnosis/Problems List UTI Secondary diagnosis: -allergic reaction to Levaquin with noted transaminitis -intractable nausea and vomiting -sirs, sepsis ruled out Discharge Disposition: Home Discharge Instruct/Medications Diet: Regular Activity: No Restrictions, As Tolerated Follow Up/Referral: Follow up with PCP in 1-2 weeks 36 Discharge Statement: "Patient was advised to return to the ER or call 911 if any headaches, dizziness, shortness of breath, chest pain, abdominal pain, bleeding, fevers, or worsening of medical condition. Patient was counseled about treatment plan, medications, possible side effects, patientverbalized understanding. All questions were answered to the best of my ability. This discharge took greater then 30 minutes in planning, reviewing documentation, counseling the patient, and discussing with other team members." ASSESSMENT ASSESSMENT Assessment UTI Date of Service: April 17, 2025 Billing Provider: BOBBY KING NP Common Visit Codes: 75635-CMQ/OBS DISCH DAY >30min BOBBY KING NP April 17, 2025 11:14
[2025-04-17 13:00] VITALS: BP 131/89; PULSE 43; RESP 17; TEMP 97.4; O2SAT 96
== END 2025-04-17 16:00 | disposition home or self-care (01) | DRG 690 ==
LOC: ER 10:00 → OVERFLOW 16:25 → EAST 04-16 17:07
PROVIDERS: ADMIT Nurse Practitioner Acute Care; ATTEND Nurse Practitioner Acute Care
DX: N30.00 Acute cystitis without hematuria (principal); R65.10 Systemic inflammatory response syndrome (SIRS) of non-infectious origin without acute organ dysfunction; T36.8X5A Adverse effect of other systemic antibiotics, initial encounter; R73.9 Hyperglycemia, unspecified; Z88.1 Allergy status to other antibiotic agents; Z88.0 Allergy status to penicillin; Z88.2 Allergy status to sulfonamides; Z88.8 Allergy status to other drugs, medicaments and biological substances; Z79.899 Other long term (current) drug therapy; Z88.3 Allergy status to other anti-infective agents; Y92.89 Other specified places as the place of occurrence of the external cause
CPT/HCPCS: 36415; 74176; 76705; 80053; 81001; 81025; 83036; 83690; 85025; 87086; 93005; 99291; G0378; J1956; J2405; J7060